=== PATIENT | male | born 1965 | race Caucasian/White ===

== ENCOUNTER 2017-12-28 05:21 | Observation (INO) | payer BC ==
[2017-12-26 16:14] LABS: BASOPHILS # (AUTO) 0.1 (0.0-0.1); BASOPHILS % 0.6 % (0.0-1.0); EOSINOPHILS # (AUTO) 0.2 (0.0-0.4); EOSINOPHILS % 1.7 % (0.0-6.0); HEMATOCRIT 39.4 % (38.2-49.6); HEMOGLOBIN 13.6 g/dL (14.0-18.0); LYMPHOCYTES # (AUTO) 2.6 (1.0-3.2); LYMPHOCYTES % 27.6 % (18.0-39.1); MEAN CORPUSCULAR HEMOGLOBIN 30.6 pg (28-32); MEAN CORPUSCULAR HGB CONC 34.5 g/dL (31-35); MEAN CORPUSCULAR VOLUME 88.7 fL (81-99); MONOCYTES # (AUTO) 0.8 (0.2-0.8); MONOCYTES % 8.5 % (4.4-11.3); NEUTROPHILS # (AUTO) 5.7 (2.1-6.9); NEUTROPHILS % 61.3 % (38.7-80.0); PLATELET COUNT 235 x10e3/uL (140-360); RED BLOOD COUNT 4.44 x10e6/uL (4.3-5.7); RED CELL DISTRIBUTION WIDTH 12.3 % (11.7-14.4)
[2017-12-26 16:25] LABS: INR 1.01; PARTIAL THROMBOPLASTIN TIME 27.1 seconds (23.8-35.5); PROTHROMBIN TIME 12.5 seconds (11.9-14.5)
--- NOTE | 2017-12-26 16:25 | Diagnostic Imaging Report ---
PROCEDURE: Frontal and lateral views of the chest. COMPARISON: None. INDICATIONS: PRE-OPERATIVE CHEST X-RAY FOR SURGERY FINDINGS: Lines/tubes: None. Lungs: The lungs are well inflated and clear. There is no evidence of pneumonia or pulmonary edema. Pleura: There is no pleural effusion or pneumothorax. Heart and mediastinum: The heart and the mediastinum are normal. Bones: No acute bony abnormality. IMPRESSION: 1. No acute cardiopulmonary abnormality. Jim Mckeon M.D. Dictated by: Jim Mckeon M.D. on 12/26/2017 at 16:24 Electronically approved by: Jim Mckeon M.D. on 12/26/2017 at 16:24
[2017-12-26 16:30] LABS: ANION GAP 11.9 mmol/L (8-16); BLOOD UREA NITROGEN 22 mg/dL (7-26); BUN/CREATININE RATIO 23 (6-25); CALCIUM 9.3 mg/dL (8.4-10.2); CARBON DIOXIDE 25 mmol/L (22-29); CHLORIDE 105 mmol/L (98-107); CREATININE, SERUM 0.95 mg/dL (0.72-1.25); EST GLOMERULAR FILTRATION RATE > 60 ML/MIN (60-); GLUCOSE 98 mg/dL (74-118); POTASSIUM 3.9 mmol/L (3.5-5.1); SODIUM 138 mmol/L (136-145)
[~2017-12-28] VITALS: Ht 182.9 cm; Wt 97.5 kg
[~2017-12-28 05:21] MED LIST: LISINOPRIL10 MG PO
--- OUTSIDE RECORDS SUMMARY | 2017-12-28 05:23 | XMS REPORT ---
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 Allergies, Adverse Reactions, Alerts This patient has no known allergies or adverse reactions. Medications This patient has no known medications. Results Test Description Test Time Test Comments Text Results Atomic Results Result Comments CHEST 2 VIEWS [place] [address] Patient Name: LAVELL HE MR #: [id number] : 1965 Age/Sex: 52/M Req #: [id number] Adm Physician: Ordered by: KYA SIMMONS MD Report #: [id number] Location: OR Room/Bed: Procedure: [id number] DX/CHEST 2 VIEWS Exam Date: 12/26/17 Exam Time: 1544 REPORT STATUS: Signed PROCEDURE: Frontal and lateral views of the chest. COMPARISON: None. INDICATIONS: PRE-OPERATIVE CHEST X- RAY FOR SURGERY FINDINGS: Lines/tubes: None. Lungs: The lungs are well inflated and clear. There is no evidence of pneumonia or pulmonary edema. Pleura: There is no pleural effusion or pneumothorax. Heart and mediastinum: The heart and the mediastinum are normal. Bones: No acute bony abnormality. IMPRESSION: 1. No acute cardiopulmonary abnormality. Joan Mckeon M.D. Dictated by: Joan Mckeon M.D. on 12/26/2017 at 16:24 Electronically approved by: Joan Mckeon M.D. on 12/26/2017 at 16:24 Dictated By : JOAN MCKEON MD Transcribed By: ISMAEL on 12/26/171623 COPY TO: KYA SIMMONS MD
[2017-12-28] MEDS ORDERED: CEFAZOLIN SOD 1 GM VIAL ONE (06:03)
[2017-12-28] MEDS ORDERED: GELATIN SPONGE SZ 100 ONE (06:48)
[2017-12-28] MEDS ORDERED: BACITRACIN 50,000 UNIT VIAL ONE (06:48)
[2017-12-28] MEDS ORDERED: THROMBIN FOR SOLN 5,000 UNIT VIAL ONE (06:48)
[2017-12-28] MEDS ORDERED: LIDOCAINE HCL (LTA) 4 ML SOLN ONE (06:59)
[2017-12-28] MEDS ORDERED: ACETAMINOPHEN 1000 MG/100 ML 100 ML IV ONE (06:59)
[2017-12-28] MEDS ORDERED: LIDOCAINE 2% /EPINEPHRINE 20 ML SDV INJ ONE (07:15)
[2017-12-28] MEDS: LACTATED RINGER'S 1,000 ML IV SCH ×3 (09:09→22:59)
[2017-12-28] MEDS ORDERED: MAGNESIUM/ALUMINUM/SIMETHICONE 30 ML UDC PO PRN (09:15)
[2017-12-28] MEDS ORDERED: CARISOPRODOL 350 MG TAB PO PRN (09:15)
[2017-12-28] MEDS ORDERED: MORPHINE SULFATE 5 MG/ML VIAL IM PRN (09:15)
[2017-12-28] MEDS ORDERED: ACETAMINOPHEN 325 MG TAB PO PRN (09:15)
[2017-12-28] MEDS ORDERED: CEPACOL SORE THROAT LOZENGES PO PRN (09:15)
[2017-12-28] MEDS ORDERED: ONDANSETRON HCL INJ 2 MG/ML VIAL IV PRN (09:15)
[2017-12-28] MEDS ORDERED: HYDROMORPHONE 2MG/ML INJ IV PRN (09:15)
[2017-12-28] MEDS ORDERED: ZOLPIDEM TARTRATE 5 MG TAB PO PRN (09:15)
[2017-12-28] MEDS ORDERED: PROMETHAZINE HCL (IM) 25 MG/ML VIAL IM PRN (09:15)
[2017-12-28 10:05] VITALS: BP 158/77
--- NOTE | 2017-12-28 10:10 | Operative Report ---
DATE OF PROCEDURE: December 28, 2017 PREOPERATIVE DIAGNOSIS: Right L1-L2 disk herniation with radiculopathy, M51.16. POSTOPERATIVE DIAGNOSIS: Right L1-L2 disk herniation with radiculopathy, M51.16. PROCEDURE: Right L1-L2 laminotomy, medial facetectomy, and microsurgical diskectomy, [address]42[address]. ANESTHESIA: General. INDICATIONS: The patient is a man who presents with right L2 radiculopathy and is found to a right L1-L2 disk herniation, and was taken to the operating room for microsurgical diskectomy. PROCEDURE: After induction of anesthesia, the patient was placed on the operating table in the prone position over a Yuriy frame. The lumbar region was prepped and draped in a sterile fashion. A preoperative x-ray was obtained. A small paramedian incision was created overlying the L1-L2 disk space. The lumbar fascia was opened to the right of the midline, and subperiosteal dissection was carried out to expose the right side of the L1-L2 laminae and the medial aspect of the L1-L2 facet joint. A 2nd x-ray confirmed correct localization. The operating microscope was brought in. A high-speed drill equipped with a ivis bur was used to drill the inferior aspect of lamina of L1 and the medial rim of the L1-L2 facet joints. The ligamentum flavum was resected. The dura and the traversing L2 nerve root were exposed. The disk was exposed just lateral to the nerve root, and the epidural veins were bipolar coagulated and divided with microscissors. The herniated disk material could be palpated more medially. The annulus of the disk was incised lateral to the nerve root, and the loose contents of the L1-L2 disk were first evacuated with curettes and pituitary rongeurs. A ball probe was then passed in the ventral epidural space, and forward pressure was exerted to extrude the subligamentous disk herniation laterally. This was then retrieved with a micropituitary and removed. This maneuver was repeated several times until the herniated disk material was completely resected, and the dura and the nerve root became fully decompressed. Meticulous hemostasis was secured. Retractor was removed. The lumbar fascia was closed with 0 Vicryl suture. Subcutaneous layer was closed with 2-0 Vicryl sutures. The skin was closed with 3-0 Monocryl sutures in a subcuticular fashion. Steri-Strips and dressing were applied. The patient was awakened, extubated and taken to the postanesthesia care unit in stable condition. No intraoperative complications were encountered. Estimated blood loss was 10 mL. Job#: [id number] SUJATA
[2017-12-28] MEDS: OXYCODONE/ACETAMINOPHEN 5-325 1 EACH TABLET PO PRN ×2 (10:22→15:05)
[2017-12-28 10:31] VITALS: BP 158/77
[2017-12-28] MEDS ORDERED: CEFAZOLIN SOD 1 GM/NS 50ML 50 ML IV SCH (14:00)
[2017-12-28 16:14] VITALS: BP 123/66
[2017-12-28] MEDS: CEFAZOLIN SOD 1 GM VIAL IV SCH (16:14)
[2017-12-28] MEDS ORDERED: GLYCOPYRROLATE INJ 1MG/ 5 ML SYR ONE (18:10)
[2017-12-28] MEDS ORDERED: LIDOCAINE HCL 2% LOCAL INJ 5 ML SDV VIAL INJ ONE (18:10)
[2017-12-28] MEDS ORDERED: ONDANSETRON HCL INJ 2 MG/ML VIAL ONE (18:10)
[2017-12-28] MEDS ORDERED: EPHEDRINE SULFATE INJ 50 MG/10 ML SYR ONE (18:10)
[2017-12-28] MEDS ORDERED: DEXAMETHASONE SOD PHOS INJ 4 MG/ML VIAL ONE (18:10)
[2017-12-28] MEDS ORDERED: SEVOFLURANE INHAL SOLN 250 ML PEN BTL ONE (18:10)
[2017-12-28] MEDS ORDERED: LIDOCAINE HCL 2% JELLY 5 ML TUBE ONE (18:10)
[2017-12-28] MEDS ORDERED: ROCURONIUM BROMIDE 10 MG/ML 5ML VIAL ONE (18:10)
[2017-12-28] MEDS ORDERED: NEOSTIGMINE 5 MG/5ML SYR ONE (18:10)
[2017-12-28] MEDS ORDERED: PROPOFOL IV EMULSION 10 MG/ML 20 ML VIAL ONE (18:10)
[2017-12-28] MEDS ORDERED: FENTANYL CITRATE/PF 100MCG/2 ML INJ ONE (18:31)
[2017-12-28] MEDS ORDERED: MIDAZOLAM HCL 2 MG/2 ML VIAL ONE (18:31)
[2017-12-28 20:00] VITALS: BP 109/64
[2017-12-29 05:00] VITALS: BP 104/58
[2017-12-29] MEDS ORDERED: CEFAZOLIN SOD 1 GM VIAL IV SCH (08:00)
[2017-12-29 08:24] VITALS: BP 117/71
[2017-12-29] MEDS ORDERED: LISINOPRIL 10 MG TAB PO SCH (09:00)
[2017-12-29] MEDS: CEFAZOLIN SOD 1 GM VIAL IV SCH ×2 (09:50)
[2017-12-29 11:01] VITALS: BP 117/71
== END 2017-12-29 11:06 | disposition home or self-care (01) ==
LOC: OR 05:21 → IMCU 09:51
PROVIDERS: ADMIT Neurological Surgery; ATTEND Neurological Surgery
DX: M51.16 Intervertebral disc disorders with radiculopathy, lumbar region (principal); I10 Essential (primary) hypertension
CPT/HCPCS: 36415; 63047; 71046; 72020; 80048; 85025; 85610; 85730; 86850; 86900; 88304; 93005; 96374; 96376; G0378 ×2; J0690; J1100; J2001 ×3; J2250; J2270; J2405

== ENCOUNTER 2018-09-03 05:09 | Inpatient (IN) | payer BC ==
[2018-08-31 14:18] LABS: BASOPHILS % 0.6 % (0.0-1.0); EOSINOPHILS # (AUTO) 0.2 (0.0-0.4); EOSINOPHILS % 2.3 % (0.0-6.0); HEMATOCRIT 41.3 % (38.2-49.6); HEMOGLOBIN 14.1 g/dL (14.0-18.0); LYMPHOCYTES % 27.6 % (18.0-39.1); MEAN CORPUSCULAR HEMOGLOBIN 31.3 pg (28-32); MEAN CORPUSCULAR HGB CONC 34.1 g/dL (31-35); MEAN CORPUSCULAR VOLUME 91.8 fL (81-99); MONOCYTES # (AUTO) 0.5 (0.2-0.8); MONOCYTES % 6.8 % (4.4-11.3); NEUTROPHILS # (AUTO) 4.4 (2.1-6.9); NEUTROPHILS % 62.3 % (38.7-80.0); PLATELET COUNT 220 x10e3/uL (140-360); RED CELL DISTRIBUTION WIDTH 12.4 % (11.7-14.4)
[~2018-09-03] VITALS: Ht 182.9 cm; Wt 96.6 kg
[2018-09-03] VITALS (7 sets, daily range): BP systolic 122–147; BP diastolic 69–79
[2018-09-03] MEDS ORDERED: DEXAMETHASONE SOD PHOS 10 MG/1 ML VIAL ONE (05:27)
[2018-09-03] MEDS ORDERED: GABAPENTIN 300 MG CAP ONE (05:27)
[2018-09-03] MEDS ORDERED: CELECOXIB 200 MG CAP ONE (05:27)
[2018-09-03] MEDS ORDERED: CEFAZOLIN SOD 2 GM/D5W 50ML 50 ML IV ONE (05:28)
[2018-09-03] MEDS ORDERED: TRANEXAMIC ACID 1,000 MG/10 ML ML ONE (06:06)
[2018-09-03] MEDS ORDERED: BACITRACIN 50,000 UNIT VIAL ONE (06:06)
[2018-09-03] MEDS ORDERED: BUPIVACAINE 7.5MG/ML /DEXTROSE 82.5MG/ML 2 ML AMP INJ ONE (06:42)
[2018-09-03] MEDS ORDERED: ROPIVACAINE 246.25 MG, EPINEPHRINE HCL 1:1000 0.5 MG, CLONIDINE HCL 0.08 MG, KETOROLAC ... INJ ONE ×5 (07:30)
[2018-09-03] MEDS ORDERED: SODIUM CHLORIDE 0.9% 1000ML 1,000 ML IV SCH (08:19)
[2018-09-03] MEDS ORDERED: ONDANSETRON HCL INJ 2 MG/ML VIAL IV PRN (08:30)
[2018-09-03] MEDS ORDERED: HYDROCODONE/APAP 5MG-325MG TAB PO PRN (08:30)
[2018-09-03] MEDS ORDERED: ZOLPIDEM TARTRATE 5 MG TAB PO PRN (08:30)
[2018-09-03] MEDS ORDERED: DOCUSATE SODIUM 100 MG CAP PO PRN (08:30)
[2018-09-03] MEDS ORDERED: DIPHENHYDRAMINE HCL INJ 50 MG/ML VIAL IM/IV PRN (08:30)
[2018-09-03] MEDS ORDERED: ACETAMINOPHEN 650 MG SUPP PR PRN (08:30)
[2018-09-03] MEDS ORDERED: HYDROCODONE/APAP 7.5MG-325MG 1 EA TAB PO PRN (08:30)
[2018-09-03] MEDS ORDERED: PROMETHAZINE HCL (IM) 25 MG/ML VIAL INJ PRN (08:30)
[2018-09-03] MEDS ORDERED: FENTANYL CITRATE/PF 100MCG/2 ML INJ ONE ×2 (08:49→17:12)
[2018-09-03] MEDS ORDERED: CELECOXIB 100 MG CAP PO SCH (09:00)
--- NOTE | 2018-09-03 09:33 | Diagnostic Imaging Report ---
PROCEDURE:X-RAY PELVIS, AP VIEW COMPARISON:None. INDICATIONS:POST OP RIGHT HIP TODAY FINDINGS: Status post right total hip arthroplasty. Expected post operative findings including subcutaneous air and overlying skin tawny. Hardware appears intact and alignment is unremarkable. No evidence of fracture. AP radiograph of the pelvis demonstrates moderate left hip degenerative changes and degenerative changes of the lower lumbar spine. CONCLUSION: Status post right total hip arthroplasty with expected post operative findings as above. Dictated by: ANGIE PAREDES M.D. on 09/03/2018 at 9:41 Electronically approved by: ANGIE PAREDES M.D. on 09/03/2018 at 9:41
[2018-09-03] MEDS: KETOROLAC TROMETHAMINE 30 MG/ML VIAL IV PRN ×2 (10:38→17:28)
--- NOTE | 2018-09-03 11:06 | Consultation ---
DATE OF CONSULTATION: September 03, 2018 REASON FOR CONSULTATION: Medical management. HISTORY OF PRESENT ILLNESS: This 53-year-old white man who underwent elective right total hip replacement today, Monday, September 03, 2018. The patient has a history of advanced right hip degenerative joint disease. The patient tolerated the surgery quite well. He currently voices no complaints. The patient states his only medical problem is hypertension. The patient states that in December 2017 he underwent lower back surgery, namely right L1-L2 laminectomy with microsurgical diskectomy. The surgery did not alleviate his right hip pain. The patient underwent a postoperative hip x-ray today which revealed moderate left hip degenerative changes as well as degenerative changes of the lower lumbar spine. REVIEW OF SYSTEMS GENERAL: Weight has been stable. No fever or chills. HEENT: No headache. No vision changes. CARDIOVASCULAR: No chest pain. No shortness of breath or cough. GI: No nausea, vomiting, or constipation. : No dysuria. No hematuria or incontinence. His Boo catheter was removed in the postanesthesia care unit, and he has yet to void. NEUROMUSCULAR: Denies any left hip pain. He also denies any lower back pain. Currently, he is pain-free. ALLERGIES: NO KNOWN DRUG ALLERGIES. PAST MEDICAL HISTORY 1. Right hip degenerative joint disease. 2. Hypertension. MEDICATIONS: Lisinopril 20 mg daily. FAMILY HISTORY: The patient has a brother who suffers from right hip degenerative joint disease and in the near future will undergo right total hip replacement. 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 He smokes tobacco and drinks alcohol in the form of beer on the weekends. He is and lives alone. He, however, has a supportive ex-. PHYSICAL EXAMINATION GENERAL: He is awake, alert and fully oriented. He is very pleasant and cooperative with exam. VITAL SIGNS: Height is 6 feet 0 inches, weight 250 pounds, BMP 29. Blood pressure 143/79, pulse 91, respiratory rate 16, temperature 97.3. Oxygen saturation is 100% on room air. INTEGUMENT: Skin is warm and dry. No pallor, jaundice or diaphoresis. HEENT: Anicteric sclerae with moist mucous membranes. NECK: Supple. CARDIOVASCULAR: Tachycardic heart rate. Regular rhythm. The patient has an S4 gallop. LUNGS: No rales, no rhonchi, no wheezes. Benign. EXTREMITIES: The right hip surgical incision is currently dressed. No edema of the lower extremities. The patient is wearing sequential compression devices on his bilateral feet. NEUROLOGIC: Intact. No gross focal deficit appreciated. IMPRESSION 1. Status post right total hip replacement. 2. Hypertension. PLAN 1. Recommend hourly incentive spirometry use while awake. 2. Mobilize as per orthopedic's recommendations. 3. Pain control. 4. Restart lisinopril. 5. Stop intravenous fluids. 6. Follow renal function. 7. Follow hemoglobin and hematocrit. I would like to thank Dr. Diaz for this generous consult. I spent 40 minutes in the care of this patient. RAJIV GARCIA MD Job#: [id number]
[2018-09-03] MEDS: ACETAMINOPHEN 1000 MG/100 ML IV SCH ×2 (12:39→17:58)
[2018-09-03] MEDS ORDERED: CEFAZOLIN SOD 1 GM/D5W 50ML 50 ML IV SCH (14:00)
[2018-09-03] MEDS: CEFAZOLIN SOD 1 GM VIAL IV SCH ×2 (14:11→21:19)
[2018-09-03] MEDS: ASPIRIN 325 MG TAB PO SCH (17:00)
[2018-09-03] MEDS ORDERED: PROPOFOL IV EMULSION 10 MG/ML 20 ML VIAL ONE (17:10)
[2018-09-03] MEDS ORDERED: EPHEDRINE SULFATE INJ 50 MG/10 ML SYR ONE (17:10)
[2018-09-03] MEDS ORDERED: SEVOFLURANE INHAL SOLN 250 ML PEN BTL ONE (17:10)
[2018-09-03] MEDS ORDERED: LIDOCAINE HCL 2% LOCAL INJ 5 ML SDV VIAL INJ ONE (17:10)
[2018-09-03] MEDS ORDERED: MIDAZOLAM HCL 2 MG/2 ML VIAL ONE (17:12)
[2018-09-03] MEDS: CELECOXIB 200 MG CAP PO SCH (17:20)
[2018-09-04 00:14] VITALS: BP 123/66
[2018-09-04] MEDS: KETOROLAC TROMETHAMINE 30 MG/ML VIAL IV PRN (04:04)
[2018-09-04 05:39] VITALS: BP 137/81
[2018-09-04] MEDS: CEFAZOLIN SOD 1 GM VIAL IV SCH (06:00)
[2018-09-04] MEDS: ACETAMINOPHEN 1000 MG/100 ML IV SCH ×2 (06:00)
[2018-09-04 06:12] LABS: BASOPHILS % 0.1 % (0.0-1.0); EOSINOPHILS % 0.2 % (0.0-6.0); HEMATOCRIT 33.6 % (38.2-49.6); HEMOGLOBIN 11.4 g/dL (14.0-18.0); LYMPHOCYTES # (AUTO) 1.7 (1.0-3.2); LYMPHOCYTES % 12.8 % (18.0-39.1); MEAN CORPUSCULAR HEMOGLOBIN 31.5 pg (28-32); MEAN CORPUSCULAR HGB CONC 33.9 g/dL (31-35); MEAN CORPUSCULAR VOLUME 92.8 fL (81-99); MONOCYTES # (AUTO) 1.5 (0.2-0.8); MONOCYTES % 11.5 % (4.4-11.3); NEUTROPHILS # (AUTO) 9.8 (2.1-6.9); PLATELET COUNT 176 x10e3/uL (140-360); RED BLOOD COUNT 3.62 x10e6/uL (4.3-5.7); RED CELL DISTRIBUTION WIDTH 12.8 % (11.7-14.4)
[2018-09-04 06:38] LABS: ANION GAP 12.4 mmol/L (8-16); BLOOD UREA NITROGEN 20 mg/dL (7-26); BUN/CREATININE RATIO 22 (6-25); CALCIUM 9.1 mg/dL (8.4-10.2); CARBON DIOXIDE 26 mmol/L (22-29); CHLORIDE 104 mmol/L (98-107); CREATININE, SERUM 0.93 mg/dL (0.72-1.25); EST GLOMERULAR FILTRATION RATE > 60 ML/MIN (60-); GLUCOSE 116 mg/dL (74-118); POTASSIUM 4.4 mmol/L (3.5-5.1); SODIUM 138 mmol/L (136-145)
[2018-09-04 08:00] VITALS: BP 137/81
[2018-09-04] MEDS ORDERED: ACETAMINOPHEN 1000 MG/100 ML IV PRN (08:30)
[2018-09-04] MEDS ORDERED: ASPIRIN325 MG PO (08:30)
[2018-09-04 08:35] VITALS: BP 140/82
[2018-09-04] MEDS: CELECOXIB 200 MG CAP PO SCH (08:53)
[2018-09-04] MEDS: ASPIRIN 325 MG TAB PO SCH (08:53)
[2018-09-04] MEDS ORDERED: LISINOPRIL 10 MG TAB PO SCH (09:00)
--- NOTE | 2018-09-04 09:45 | Operative Report ---
DATE OF PROCEDURE: September 03, 2018 LOAD OUT WORKER: Blayne Deras PA-C The patient was brought to the operating room for induction of anesthesia. Throughout this case, my PA's assistance was necessary for retraction of soft tissue and positioning of the extremity. This allows for efficient and technically successful execution of the operation and is considered medically necessary. PREOPERATIVE DIAGNOSIS: Osteoarthritis, right hip. POSTOPERATIVE DIAGNOSIS: Osteoarthritis, right hip. PROCEDURE: Right total hip arthroplasty. INDICATIONS: The patient is an active 53-year-old gentleman who has severe arthritis involving his right hip. He has failed conservative management and has disabling pain. He would like to proceed with a right total hip replacement. The risks and benefits of the procedure have been discussed. Long-term expectations have been explained. He states he understands and wishes to proceed. DESCRIPTION OF PROCEDURE: The patient was brought to the operating room and placed under general anesthetic. He received prophylactic antibiotics and tranexamic acid in the holding area. He did not get any regional block because he had recent spinal surgery. He was positioned in the left lateral decubitus position. His right hip was prepped and draped in a sterile manner. A preoperative time out was performed. A posterior approach was made to the right hip. Hemostasis was obtained with electrocautery. A deep self-retaining Charnley retractor was placed. Care was taken to avoid injury to the sciatic nerve. The posterior capsule was carefully exposed. Further hemostasis was obtained with electrocautery. The short external rotators and posterior capsule were released. I spared the piriformis attachment. The hip was dislocated, and an oscillating saw was used to resect the femoral head. Severe deformity, loss of articular cartilage and marginal osteophytes were noted. Acetabular retractors were carefully placed. Marginal osteophytes were further removed. The true floor of the acetabulum was established with a 46-mm reamer. The socket was then sequentially reamed up to 55 mm. Bleeding hemispherical cancellous bone was accomplished. A couple of small subchondral cysts were debrided with a curved curette. The hip was thoroughly irrigated with a shower-tip pulsatile lavage. A [employer] [employer] 56 mm outer diameter osteo-T socket was then impacted into place. Fixation was augmented with a single 20 mm cancellous screw placed into the ilium. Excellent acetabular fixation was obtained. The hip was further irrigated, and a highly cross link polyethylene liner with no posterior elevation was seated. The socket was then packed with a moistly soaked lap sponge. A portion of a 100 mL premixed pericapsular GT injection was placed into the surrounding soft tissue. Attention was directed towards the proximal femur. A box cutting osteotome and taper pin reamer were used to establish entry to the femoral canal. The [employer]omet Taperloc broaches were then impacted. A size 15 stem was necessary for good canal fill and stability for trial reductions. I felt that a +3 neck provided appropriate soft tissue balancing and stability. The trial implants were removed. The hip was further irrigated with a shower-tip pulsatile lavage. The remainder of the GT injection was placed into the subcutaneous tissue. The implants were seated and a final reduction was performed. The head was a ceramic head. The hip was put through an arc of motion and noted to have good stability. The posterior capsule was carefully repaired with interrupted #2 Ethibond stitches. The proximal tensor fascia and gluteal fascia were closed with interrupted #2 Ethibond. The skin was closed with subcuticular Vicryl and tawny. A sterile Aquacel bandage was applied. He was returned to the supine position, extubated and transported to the recovery room in stable condition. Blood loss was approximately 50 mL. At the end of the procedure, all needle and sponge counts were correct. Job#: [id number] SUJATA
== END 2018-09-04 10:16 | disposition home health service (06) | DRG 470 ==
LOC: OR 05:09 → PACU V 08:21 → MED/SURG 09:34 → OBSVTOIN 09:39
PROVIDERS: ADMIT Specialist; ATTEND Specialist
PROC: 0SR902A Replacement of Right Hip Joint with Metal on Polyethylene Synthetic Substitute, Uncemented, Open Approach (ICD-10-PCS; principal; 2018-09-03 07:00)
DX: M16.11 Unilateral primary osteoarthritis, right hip (principal); I10 Essential (primary) hypertension; F17.210 Nicotine dependence, cigarettes, uncomplicated
CPT/HCPCS: 36415; 72170; 80048; 85025; 86850; 86900; 86920; 93005; C1713; J0171; J0690; J1100; J1885; J2001; J2250; J2795